=== PATIENT | male | born 1990 | race Hispanic/Latino ===

== ENCOUNTER 2018-05-12 20:31 | Emergency (ER) | payer SELFPAY ==
--- NOTE | 2018-05-12 20:50 | ED PDOC ---
Arrival/HPI - General Time Seen by Provider: 05/12/18 20:42 Historian: Patient - History of Present Illness Narrative History of Present Illness (Text): 05/12/18 20:43 32 y/o male, limited HPI can be obtained, here as randall Melara, last tetanus unknown, found on the park facing down with blood on the lt. sided facial region. Pt. found intoxicated in the park with suspecting of heroine use, facing down, stated that he doesn't know what happened, no neck or back pain, no extremity pain, stated that he feels well. Pt. has no headache or neck pain , no palpitation, no rash, no other medical or psychological complaints. Pt. has no other medical or psychological complaints. Past Medical History - Provider Review Nursing Documentation Reviewed: Yes Family/Social History - Physician Review Nursing Documentation Reviewed: Yes Family/Social History: Unknown Family HX Allergies/Home Meds Allergies/Adverse Reactions: Allergies No Known Allergies Allergy (Verified 05/12/18 20:51) Review of Systems - Review of Systems Systems not reviewed;Unavailable: Intoxicated Skin: Other (+abrasion). absent: Laceration, Abscess, Ulcer, Cellulitis Physical Exam Vital Signs Pulse Resp BP Pulse Ox 05/13/18 06:19 81 98 05/13/18 06:16 81 18 133/80 98 05/12/18 22:35 100 H 18 130/90 98 - Systems Exam Head: Present: Atraumatic, Normocephalic, Tenderness (Lt. frontal), Contusion ( Lt. frontal), Swelling (Lt. frontal), Ecchymosis, Abrasion (lt. frontal forehead ), Other (Facial: +contussion noted on the lt. eyebrow region with visible superficial abrasion approx. 1cm diameter noted, lt. upper eyelid outter region visible approx. 1.5cm superficial laceration noted, no celulitis o ulcers. ). No: Laceration Pupils: Present: PERRL, Pinpoint Extroacular Muscles: Present: EOMI Conjunctiva: Present: Normal Ears: Present: NORMAL TM. No: Erythema, Normal Canal (mild ear wax) Mouth: Present: Moist Mucous Membranes Pharnyx: No: ERYTHEMA, EXUDATE, TONSILS ENLARGED Nose (External): Present: Contusion. No: Abrasion, Laceration, Lesions Nose (Internal): Present: Normal Inspection, No Active Bleeding. No: Rhinorrhea , Septal Deviation, Septal Hematoma, Epistaxis Neck: Present: Normal Range of Motion, Trachea Midline. No: Meningeal Signs, MIDLINE TENDERNESS, Paraspinal Tenderness Respiratory/Chest: Present: Clear to Auscultation, Good Air Exchange. No: Respiratory Distress, Accessory Muscle Use Cardiovascular: Present: Regular Rate and Rhythm, Normal S1, S2. No: Murmurs Abdomen: No: Tenderness, Distention, Peritoneal Signs, Rebound, Guarding Back: Present: Normal Inspection. No: CVA Tenderness, Midline Tenderness, Paraspinal Tenderness Upper Extremity: Present: Normal Inspection. No: Cyanosis, Edema Lower Extremity: Present: Normal Inspection. No: Edema Neurological: Present: GCS=15, CN II-XII Intact, Motor Func Grossly Intact Skin: Present: Warm, Dry, Normal Color. No: Rashes Psychiatric: Present: Alert, Normal Insight, Normal Concentration, Intoxicated Medical Decision Making ED Course and Treatment: 05/12/18 20:52 -Labs/alcohol/UDS -CT head/facial/cervical -Chest xray -EKG -IVF/ancef/tdap -monitoring manager -Wound irrigated with normal saline, clean with betadine -Observe and reassess 05/12/18 22:43 PROCEDURE: LACERATION REPAIR Location: lt. eyebrow Length: 1.5 cm Description: {"clean wound edges","no foreign bodies"} Distal CMS: Normal. No deficits. Neurovascularly intact. Anesthesia: Lidocaine 1% 1cc Preparation: The wound was cleaned with NS 1000cc and Betadyne. The area was prepped and draped in the usual sterile fashion. Exploration: The wound was explored and no foreign bodies were found. Procedure: The wound was closed with 6-0 nylon. There was {good / appropriate / adequate / loose} approximation. In total, 4 were used. Post-Procedure: Good closure and hemostasis. The patient tolerated the procedure well and there were no complications. CSM remains intact. Post procedure dressing applied. Total procedure 15 minutes. 05/13/18 01:11 -EKG: NSR @ 82 BPM, no ST elevation or depression, no T wave inversion. -CT head Left premaxillary sinus subcutaneous tissue hematoma. An underlying maxillary sinus fracture cannot be excluded. No definite acute intracranial abnormality. -CT Facial Left premaxillary sinus subcutaneous tissue hematoma. Large opacification of the left maxillary sinus and partial opacification of the ethmoidal sinus. -CT Cervical No acute traumatic osseous injury in the cervical spine. Bilateral upper molar dental caries. Ethmoid mucosal thickening and density filling left maxillary sinus likely extensive inflammatory disease. Bilateral external auditory canal density, left greater than right, probably cerumen. -Chest xray show no active disease -Labs show no acute findings -Alcohol within normal limit -Acetaminophen/salicylate level within normal limit 05/13/18 02:10 -Pt. is still sleeping, resting comfortably, easily arousable, offers no medical or psychological complaints, vitally stable, provided the full name and address, pending sober -Case discussed and endorsed to the current ER attending Dr. Smith for re- evaluation/drug screen and sober, augmentin prescription and printed. - Lab Interpretations Lab Results: 05/12/18 22:14 05/12/18 22:14 Lab Results 05/13/18 03:40: Urine Opiates Screen Negative, Urine Methadone Screen Negative, Ur Barbiturates Screen Negative, Ur Phencyclidine Scrn Positive H, Ur Amphetamines Screen Negative, U Benzodiazepines Scrn Negative, U Oth Cocaine Metabols Negative, U Cannabinoids Screen Positive H 05/12/18 22:14: Alcohol, Quantitative < 10 05/12/18 22:14: Salicylates < 1 L, Acetaminophen < 10.0 L 05/12/18 22:14: Sodium 148, Potassium 3.8, Chloride 105, Carbon Dioxide 29, Anion Gap 17, BUN 17, Creatinine 1.0, Est GFR ( Amer) > 60, Est GFR (Non- Af Amer) > 60, Random Glucose 82, Calcium 9.4, Magnesium 1.9, Total Bilirubin 0.3, AST 39, ALT 38, Alkaline Phosphatase 54, Total Protein 7.7, Albumin 4.5, Globulin 3.2, Albumin/Globulin Ratio 1.4 05/12/18 22:14: WBC 10.7, RBC 4.23, Hgb 13.4 L, Hct 37.3 L, MCV 88.2, MCH 31.7, MCHC 35.9, RDW 12.7, Plt Count 233, MPV 10.1, Gran % 67.3, Lymph % (Auto) 23.8, [place] % (Auto) 7.6 H, Eos % (Auto) 1.1 L, Baso % (Auto) 0.2, Gran # 7.19 H, Lymph # (Auto) 2.5, [place] # (Auto) 0.8 H, Eos # (Auto) 0.1, Baso # (Auto) 0.02 I have reviewed the lab results: Yes - RAD Interpretation Radiology Orders: 05/12/18 20:54 CERVICAL SPINE W/O CONTRAST [CT] Stat HEAD W/O CONTRAST [CT] Stat MAXILLOFACIAL W/O CONTRAST [CT] Stat CHEST PORTABLE [RAD] Stat CT Head: FINDINGS: Brain: Normal. No hemorrhage. No significant white matter disease. No edema. Ventricles: Normal. No ventriculomegaly. Bones/joints: See Soft Tissues Finding. Sinuses: Large opacification of the left maxillary sinus. Mastoid air cells: Normal as visualized. No mastoid effusion. Soft tissues: Left premaxillary sinus subcutaneous tissue hematoma. An underlying maxillary sinus fracture cannot be excluded. IMPRESSION: Left premaxillary sinus subcutaneous tissue hematoma. An underlying maxillary sinus fracture cannot be excluded. No definite acute intracranial abnormality. 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 If there is a discrepancy between the preliminary and final interpretation, please notify [facility] via [email or web address]. If you do not have access to our QA portal, call our QA team at [phone] CONFIDENTIALITY STATEMENT This report is intended only for the use of the referring physician, and only in accordance with law, If you received this in error, call [phone] Page 2 of 2 Thank you for allowing us to participate in the care of your patient. Dictated and Authenticated by: Julio Hernandez MD 05/13/2018 12:00 AM Eastern Time ([place] & [place]) CT Facial: Bones/joints: No acute fracture. Soft tissues: Left premaxillary sinus subcutaneous tissue hematoma. Orbits: No acute intraorbital abnormality. Globes are unremarkable Sinuses: Large opacification of the left maxillary sinus and partial opacification of the ethmoidal sinus. Dental: Dental caries in bilateral posterior maxillary molars. Other findings: Incomplete fusion of the posterior ring of C1. IMPRESSION: Left premaxillary sinus subcutaneous tissue hematoma. Large opacification of the left maxillary sinus and partial opacification of the ethmoidal sinus. Thank you for allowing us to participate in the care of your patient. 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 No acute fracture. No acute subluxation. Relative straightening of cervical lordosis. 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 Soft tissues: Unremarkable. Sinuses: Ethmoid sinus mucosal thickening. Density fills essentially the entire left maxillary sinus. Auditory system: Density within the external auditory canal bilaterally, left rib and right. Dental: Bilateral upper molar dental caries. Lung apices: Unremarkable as visualized. IMPRESSION: No acute traumatic osseous injury in the cervical spine. Bilateral upper molar dental caries. Ethmoid mucosal thickening and density filling left maxillary sinus likely extensive inflammatory disease. Bilateral external auditory canal density, left greater than right, probably cerumen. Thank you for allowing us to participate in the care of your patient. Dictated and Authenticated by: Viktor Whitmore MD 05/13/2018 12:34 AM Eastern Time ([facility]) Chest xray: No active disease Bunghole Borer: Radiologist - EKG Interpretation EKG Interpretation (Text): 05/13/18 00:06 -NSR @ 82 BPM, no ST elevation or depression, no T wave inversion. Interpreted by ED Physician: Yes Type: 12 lead EKG - Medication Orders Current Medication Orders: Discontinued Medications Sodium Chloride (Sodium Chloride 0.9%) 1,000 mls @ 999 mls/hr IV .Q1H1M STA Stop: 05/12/18 21:54 Last Admin: 05/12/18 21:33 Dose: 999 mls/hr eMAR Start Stop Document 05/12/18 21:33 SS (Rec: 05/12/18 21:33 SS [id number]) Intravenous Solution Start Date 05/12/18 Start Time 21:33 End Date 05/12/18 End time 22:33 Total Infusion Time 60 Cefazolin Sodium (Ancef 1gm In Ns) 1 gm in 100 mls @ 100 mls/hr IVPB STAT STA PRN Reason: Protocol Stop: 05/12/18 22:24 Last Admin: 05/12/18 23:06 Dose: 100 mls/hr eMAR Start Stop Document 05/12/18 23:06 SS (Rec: 05/12/18 23:06 SS [id number]) Intravenous Solution Start Date 05/12/18 Start Time 23:06 Tetanus/Reduced Diphtheria/Acell Pertussis (Boostrix Vaccine Inj) 0.5 ml IM .ONCE ONE Stop: 05/12/18 20:55 - 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 Disposition/Present on Arrival - Present on Arrival Any Indicators Present on Arrival: No History of DVT/PE: No History of Uncontrolled Diabetes: No Urinary Catheter: No History of Decub. Ulcer: No - Disposition Have Diagnosis and Disposition been Completed?: Yes Diagnosis: Fall, Hematoma, Contusion, Sinusitis Disposition: HOME/ ROUTINE Disposition Time: 02:10 Condition: FAIR Discharge Instructions (ExitCare): Sinusitis, Adult (DC), Contusion (DC) Prescriptions: Amoxicillin/Clavulanate [Augmentin 875 MG-125 MG] 1 tab PO BID #14 tab Forms: [employer] [facility] (Panamanian)
[2018-05-12] MEDS ORDERED: TDAP Vaccine 0.5 mL Syr IM ONE (20:54)
[2018-05-12] MEDS ORDERED: Sodium Chloride 0.9% 1,000 ML IV STA (20:54)
[2018-05-12] MEDS ORDERED: ceFAZolin 1 gm in NS 1 GM/100 ML BAG IVPB STA (21:25)
[2018-05-12] MEDS ORDERED: Lidocaine Hydrochloride 1% 10 ML ONE (21:30)
[2018-05-12 22:31] LABS: BASO # 0.02 K/mm3 (0.0-2.0); BASO % 0.2 % (0.0-3.0); EOS # 0.1 (0.0-0.7); EOS % 1.1 % (1.5-5.0); GRAN # 7.19 (1.4-6.5); GRAN % 67.3 % (50.0-68.0); HEMOGLOBIN 13.4 g/dL (14.0-18.0); LYMPH # 2.5 (1.2-3.4); LYMPH % 23.8 % (22.0-35.0); MEAN CELL VOLUME 88.2 fl (80.0-105.0); MEAN CORPUSCULAR HEMOGLOBIN 31.7 pg (25.0-35.0); MEAN CORPUSCULAR HGB CONC 35.9 g/dl (31.0-37.0); MEAN PLATELET VOLUME 10.1 fl (7.0-11.0); MONO # 0.8 (0.1-0.6); MONO % 7.6 % (1.0-6.0); RBC 4.23 10^6/uL (3.5-6.1); RED CELL DISTRIBUTION WIDTH 12.7 % (11.5-14.5); WHITE BLOOD COUNT 10.7 10^3/ul (4.5-11.0)
[2018-05-12 22:40] LABS: ALB/GLOB RATIO 1.4 (1.1-1.8); ALBUMIN 4.5 g/dL (3.0-4.8); ALT/SGPT 38 U/L (7-56); AST/SGOT 39 U/L (17-59); BLOOD UREA NITROGEN 17 mg/dL (7-21); CALCIUM 9.4 mg/dL (8.4-10.5); GFR NON-AFRICAN AMERICAN > 60
[2018-05-12 22:53] LABS: ACETAMINOPHEN < 10.0 ug/ml (10.0-20.0); SALICYLATE < 1 mg/dL (2.0-20.0)
[2018-05-13 04:10] VITALS: RESP 18; O2SAT 98
[2018-05-13 04:28] LABS: OPIATES, UR NEGATIVE (NEGATIVE)
[2018-05-13 04:39] LABS: BARBITURATES, UR NEGATIVE (NEGATIVE); BENZODIAZEPINES, UR NEGATIVE (NEGATIVE); PHENCYCLIDINE, UR POSITIVE (NEGATIVE)
[2018-05-13 06:17] VITALS: BP 133/80; PULSE 81
--- NOTE | 2018-05-13 08:04 | CT ---
Date of service: 05/12/2018 PROCEDURE: CT HEAD WITHOUT CONTRAST. HISTORY: Intoxicated, fall COMPARISON: None available. TECHNIQUE: Axial computed tomography images were obtained through the head/brain without intravenous contrast. Radiation dose: Total exam DLP = 999.87 mGy-cm. This CT exam was performed using one or more of the following dose reduction techniques: Automated exposure control, adjustment of the mA and/or kV according to patient size, and/or use of iterative reconstruction technique. FINDINGS: HEMORRHAGE: No intracranial hemorrhage. BRAIN: No mass effect or edema. No atrophy or chronic microvascular ischemic changes. VENTRICLES: No hydrocephalus. CALVARIUM: Unremarkable. PARANASAL SINUSES: Complete opacification of the left maxillary sinus. Partial opacification of the ethmoid air cells. MASTOID AIR CELLS: Unremarkable as visualized. No inflammatory changes. OTHER FINDINGS: Left facial and preseptal soft tissue swelling. Underlying fracture is not excluded. Bilateral dental caries. IMPRESSION: Left facial and preseptal soft tissue swelling. Underlying fracture cannot be excluded. Suggest correlation with CT maxillofacial study. Preliminary impression was provided by virtual radiologic.
--- NOTE | 2018-05-13 08:11 | CT ---
Date of service: 07/12/18 CT cervical spine without IV contrast Indication: Intoxicated, fall Comparison: None available. Technique: Axial computed tomography images were obtained of the cervical spine without the use of intravenous contrast. Coronal and sagittal reformatted images were created and reviewed. This CT exam was performed using 1 or more of the following dose reduction techniques: Automated exposure control, adjustment of the MAA and/or kV according to patient size, and/or use of iterative reconstruction technique. Radiation dose: Total exam DLP = 606.12 mGy-cm. Findings: There is no evidence of acute fracture or subluxation. There is preserved alignment, vertebral body height, intervertebral disc spaces. The prevertebral soft tissues and spinolaminar lines appear intact. The lateral masses are preserved. The dens tip is intact. There is proper alignment of the lateral masses of C1 with the C2 vertebral body. Extensive opacification of the left maxillary sinus and ethmoid air cells, favored related to chronic sinusitis. Correlate clinically. Partial opacification of bilateral external auditory canals, [id number]-right, likely cerumen. Bilateral dental caries. Included portions of the thyroid gland appear unremarkable. Included portions of lung apices appear clear. Impression: No evidence of acute fracture or subluxation. Extensive opacification of the left maxillary sinus and ethmoid air cells, favored related to chronic sinusitis. Correlate clinically. Partial opacification of bilateral external auditory canals, [id number]-right, likely cerumen. Bilateral dental caries. Preliminary impression was provided by virtual radiologic.
--- NOTE | 2018-05-13 08:19 | CT ---
Date of service: 05/12/18 CT maxillofacial bones without IV contrast Indication: Intoxicated, fall Comparison: None available Technique: Axial computed tomography images were obtained of the maxillofacial bones without the use of intravenous contrast. Coronal and sagittal reformatted images were generated and reviewed. This CT exam was performed using 1 or more of the following dose reduction techniques: Automated exposure control, adjustment of the MAA and/or kV according to patient size, and/or use of iterative reconstruction technique. Radiation dose: Total exam DLP = 733.83 mGy-cm. Findings: Left preseptal and facial soft tissue swelling/premaxillary hematoma. The facial bones appear unremarkable intact without acute displaced fracture evident. No stranding of the orbital fat appreciated. The orbits appear unremarkable. Extensive opacification of the left maxillary sinus and ethmoid air cells, favored related to chronic sinusitis. Correlate clinically. Partial opacification of bilateral external auditory canals, [id number]-right, likely cerumen. Bilateral dental caries. The visualized brain appears unremarkable. Incomplete fusion of the posterior ring of C1. Impression: No acute fracture identified. Left preseptal and facial soft tissue swelling/ premaxillary hematoma. Extensive opacification of the left maxillary sinus and ethmoid air cells, favored related to chronic sinusitis. Correlate clinically. Partial opacification of bilateral external auditory canals, [id number]-right, likely cerumen. Bilateral dental caries. Preliminary impression was provided by virtual radiologic.
--- NOTE | 2018-05-13 10:06 | RAD ---
Date of service: 05/12/2018 HISTORY: Intoxicated, fall COMPARISON: No prior. FINDINGS: LUNGS: No active pulmonary disease. PLEURA: No significant pleural effusion identified, no pneumothorax apparent. CARDIOVASCULAR: Normal. OSSEOUS STRUCTURES: No significant abnormalities. VISUALIZED UPPER ABDOMEN: Normal. OTHER FINDINGS: None. IMPRESSION: No active disease.
--- NOTE | 2018-05-13 11:11 | CARD ---
APPROVED REPORT Date of service: 05/12/2018 EKG Measurement Heart [id number] CO [id number] <Conclusion> Normal sinus rhythm LVH by voltage, could be a normal variant J-point elevations 2,3,F, V 3 - 6
== END 2018-05-13 06:19 | disposition home or self-care (01) ==
LOC: ED 20:31
DX: J32.9 Chronic sinusitis, unspecified (principal); S00.33XA Contusion of nose, initial encounter; W19.XXXA Unspecified fall, initial encounter
CPT/HCPCS: 12011; 70450; 70486; 71045; 72125; 80053; 83735; 85025; 93005; 96360; 99284; G0480; J0690; J7030